=== PATIENT | female | born 1960 | race Caucasian/White ===

== ENCOUNTER 2016-08-25 09:31 | Emergency (ER) | payer MEDICAID ==
[~2016-08-25] VITALS: Ht 175.3 cm; Wt 80.0 kg
[~2016-08-25 09:31] MED LIST: PREG200C PO; PREG300C PO
[2016-08-25 10:23] LABS: HEMOGLOBIN 13.6 g/dL (11.7-16.4)
[2016-08-25] MEDS ORDERED: IBUPROFEN 200 MG TABLET ONE (10:25)
[2016-08-25] MEDS ORDERED: IBUPROFEN 800 MG TABLET PO ONE (10:30)
[2016-08-25] MEDS ORDERED: ACETAMINOPHEN 500 MG TABLET PO ONE (10:30)
[2016-08-25] MEDS ORDERED: ACETAMINOPHEN 500 MG TABLET ONE (10:32)
[2016-08-25 10:33] LABS: BLOOD UREA NITROGEN 12 mg/dL (7-18)
[2016-08-25 10:35] VITALS: BP 118/80
[2016-08-25 10:42] LABS: IS PT STATUS REG ER OR PRE ER? YES
== END 2016-08-25 11:07 | disposition home or self-care (01) ==
LOC: ED 11:00
DX: R07.89 Other chest pain (principal); M54.9 Dorsalgia, unspecified; G89.29 Other chronic pain; M54.30 Sciatica, unspecified side; Z88.1 Allergy status to other antibiotic agents; Z88.6 Allergy status to analgesic agent; F17.200 Nicotine dependence, unspecified, uncomplicated
CPT/HCPCS: 36415; 71010; 80048; 82040; 83880; 84484; 85025; 85379; 93005

== ENCOUNTER 2016-12-15 09:35 | Emergency (ER) | payer MEDICAID ==
[~2016-12-15] VITALS: Ht 175.3 cm; Wt 81.9 kg
[2016-12-15 09:36] VITALS: BP 132/88
[2016-12-15] MEDS ORDERED: PREGABALIN 150 MG CAPSULE PO ONE (10:07)
== END 2016-12-15 10:52 | disposition home or self-care (01) ==
LOC: ED 10:26
DX: Z76.0 Encounter for issue of repeat prescription (principal); Z88.1 Allergy status to other antibiotic agents; Z88.8 Allergy status to other drugs, medicaments and biological substances
CPT/HCPCS: 99283

== ENCOUNTER 2017-02-04 14:33 | Emergency (ER) | payer MEDICAID ==
[~2017-02-04] VITALS: Ht 175.3 cm; Wt 82.3 kg
[2017-02-04 14:37] VITALS: BP 98/67
[2017-02-04] MEDS ORDERED: ACETAMINOPHEN 325 MG TABLET ONE (15:32)
[2017-02-04] MEDS ORDERED: ACETAMINOPHEN 325 MG TABLET PO ONE (16:00)
== END 2017-02-04 15:48 | disposition home or self-care (01) ==
LOC: ED 15:26
DX: S00.411A Abrasion of right ear, initial encounter (principal); S09.90XA Unspecified injury of head, initial encounter; J01.00 Acute maxillary sinusitis, unspecified; G89.29 Other chronic pain; M54.5 Low back pain; Z88.1 Allergy status to other antibiotic agents; Z88.6 Allergy status to analgesic agent; Z88.8 Allergy status to other drugs, medicaments and biological substances; Y04.8XXA Assault by other bodily force, initial encounter; Y93.89 Activity, other specified; Y92.89 Other specified places as the place of occurrence of the external cause; Y99.2 Volunteer activity
CPT/HCPCS: 70450; 99284

== ENCOUNTER 2017-02-15 09:54 | Emergency (ER) | payer MEDICAID ==
[~2017-02-15] VITALS: Ht 176.5 cm; Wt 84.1 kg
[2017-02-15 10:02] VITALS: BP 131/84
[2017-02-15] MEDS ORDERED: HYDROcodone/APAP 5/325 TABLET ONE (10:35)
[2017-02-15] MEDS ORDERED: HYDROcodone/APAP 5/325 TABLET PO ONE (11:00)
== END 2017-02-15 10:49 | disposition home or self-care (01) ==
LOC: ED 10:28
DX: K08.89 Other specified disorders of teeth and supporting structures (principal); F17.200 Nicotine dependence, unspecified, uncomplicated; Z88.1 Allergy status to other antibiotic agents; Z88.5 Allergy status to narcotic agent; Z88.8 Allergy status to other drugs, medicaments and biological substances; Z88.6 Allergy status to analgesic agent
CPT/HCPCS: 99283

== ENCOUNTER 2017-06-10 17:44 | Emergency (ER) | payer MEDICAID ==
[~2017-06-10] VITALS: Ht 172.7 cm; Wt 78.6 kg
[2017-06-10 17:54] VITALS: BP 117/80
[2017-06-10 18:59] LABS: BASOPHILS # (AUTO) 0.03 x10^3/uL (0-0.1); BASOPHILS % (AUTO) 0 % (0-1); EOSINOPHILS # (AUTO) 0.11 x10^3/uL (0-0.4); EOSINOPHILS % (AUTO) 1 % (1-7); LYMPHOCYTES # (AUTO) 1.99 x10^3/uL (1-3.4); LYMPHOCYTES % (AUTO) 23 % (22-44); MD NO; MEAN CORPUSCULAR HEMOGLOBIN 28.3 pg (27.0-34.8); MEAN CORPUSCULAR HGB CONC 32.7 g/dL (32.4-35.8); MEAN CORPUSCULAR VOLUME 86.4 fL (80-100); MEAN PLATELET VOLUME 7.9 fL (7.4-10.4); MONOCYTES # (AUTO) 0.78 x10^3/uL (0.2-0.8); MONOCYTES % (AUTO) 9 % (2-9); NEUTROPHILS # (AUTO) 5.73 x10^3/uL (1.8-6.8); NEUTROPHILS % (AUTO) 66 % (42-75); PLATELET COUNT 367 x10^3/uL (130-400); RED BLOOD COUNT 4.73 x10^6/uL (3.82-5.3); RED CELL DISTRIBUTION WIDTH 15.4 % (9.6-15.2)
[2017-06-10 18:59] LABS: CULTURE INDICATED? YES; MICROSCOPIC INDICATED
[2017-06-10 19:01] LABS: AMPHETAMINE SCREEN, URINE Positive (Negative); BARBITURATE SCREEN, URINE Negative (Negative); BENZODIAZEPINE SCREEN, URINE Positive (Negative); CANNABINOID SCREEN, URINE Negative (Negative); COCAINE SCREEN, URINE Negative (Negative); METHADONE SCREEN, URINE Positive (Negative); OPIATE SCREEN, URINE Negative (Negative)
[2017-06-10 19:06] LABS: ALANINE AMINOTRANSFERASE 16 U/L (12-78); ALBUMIN 2.4 g/dL (3.4-5.0); ANION GAP 6 mmol/L (5-15); CALCIUM 8.8 mg/dL (8.5-10.1); CHLORIDE 107 mmol/L (98-107); CREATININE 0.85 mg/dL (0.55-1.02)
[2017-06-10 19:08] LABS: ALKALINE PHOSPHATASE 100 U/L (45-117); BILIRUBIN,TOTAL 0.3 mg/dL (0.2-1.0); TOTAL PROTEIN 6.4 g/dL (6.4-8.2)
[2017-06-10 19:10] LABS: TROPONIN I < 0.015 ng/mL (0.000-0.045)
== END 2017-06-10 19:39 | disposition home or self-care (01) ==
LOC: ED 19:20
DX: R10.12 Left upper quadrant pain (principal); K44.9 Diaphragmatic hernia without obstruction or gangrene; N30.00 Acute cystitis without hematuria; F15.10 Other stimulant abuse, uncomplicated; F13.10 Sedative, hypnotic or anxiolytic abuse, uncomplicated; F19.10 Other psychoactive substance abuse, uncomplicated
CPT/HCPCS: 36415; 71010; 80053; 80307; 81001; 83690; 84484; 85025; 87077; 87086; 87186; 93005; 99285; G0479

== ENCOUNTER 2017-10-13 12:15 | Emergency (ER) | payer MEDICAID ==
[~2017-10-13] VITALS: Ht 175.3 cm; Wt 76.3 kg
[2017-10-13 12:55] VITALS: BP 145/88
== END 2017-10-13 13:02 | disposition home or self-care (01) ==
LOC: ED 12:53
DX: R56.9 Unspecified convulsions (principal); G89.29 Other chronic pain; Z76.0 Encounter for issue of repeat prescription
CPT/HCPCS: 82962; 99283

== ENCOUNTER 2017-12-27 15:30 | Emergency (ER) | payer MEDICAID ==
[~2017-12-27] VITALS: Ht 175.3 cm; Wt 83.3 kg
[2017-12-27 15:35] VITALS: BP 124/83
[2017-12-27] MEDS ORDERED: OXYcodone/APAP 5/325MG TABLET ONE (16:18)
[2017-12-27] MEDS ORDERED: OXYcodone/APAP 5/325MG TABLET PO ONE (16:30)
== END 2017-12-27 16:59 | disposition home or self-care (01) ==
LOC: ED 16:45
DX: G89.29 Other chronic pain (principal); M54.17 Radiculopathy, lumbosacral region; M54.41 Lumbago with sciatica, right side
CPT/HCPCS: 99283

== ENCOUNTER 2018-10-20 12:26 | Emergency (ER) | payer MEDICAID ==
[~2018-10-20] VITALS: Ht 177.8 cm; Wt 87.6 kg
[2018-10-20 12:43] VITALS: BP 127/87
--- NOTE | 2018-10-20 13:12 | NUR ---
Discharge instructions discussed with patient including when to return to emergency department, patient verbalizes understanding. Prescription provided with instruction for use.
== END 2018-10-20 13:14 | disposition home or self-care (01) ==
LOC: ED 13:05
DX: T78.40XA Allergy, unspecified, initial encounter (principal); F17.200 Nicotine dependence, unspecified, uncomplicated; G62.9 Polyneuropathy, unspecified; X58.XXXA Exposure to other specified factors, initial encounter
CPT/HCPCS: 99283

== ENCOUNTER 2019-12-26 09:36 | Emergency (ER) | payer MEDICAID ==
[~2019-12-26] VITALS: Ht 175.3 cm; Wt 90.8 kg
--- NOTE | 2019-12-26 10:09 | NUR ---
CC UA COLLECTED AND SENT TO LAB
[2019-12-26 10:37] LABS: MICROSCOPIC INDICATED
--- NOTE | 2019-12-26 10:37 | NUR ---
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 STEADY UPON AMBULATION.
[2019-12-26] MEDS ORDERED: CEFTRIAXONE PMX 1GM/50ML 50 ML IVPB ONE (11:00)
[2019-12-26] MEDS ORDERED: SODIUM CHLORIDE FLUSH 10ML SYR IVF ONE (11:00)
[2019-12-26 11:14] LABS: BASOPHILS # (AUTO) 0.03 x10^3/uL (0-0.1); BASOPHILS % (AUTO) 0 % (0-1); EOSINOPHILS # (AUTO) 0.09 x10^3/uL (0-0.4); EOSINOPHILS % (AUTO) 1 % (1-7); LYMPHOCYTES # (AUTO) 1.03 x10^3/uL (1-3.4); LYMPHOCYTES % (AUTO) 11 % (22-44); MD NO; MEAN CORPUSCULAR HEMOGLOBIN 28.9 pg (27.0-34.8); MEAN CORPUSCULAR HGB CONC 33.3 g/dL (32.4-35.8); MEAN CORPUSCULAR VOLUME 86.8 fL (80-100); MEAN PLATELET VOLUME 8.9 fL (7.4-10.4); MONOCYTES # (AUTO) 0.64 x10^3/uL (0.2-0.8); MONOCYTES % (AUTO) 7 % (2-9); NEUTROPHILS # (AUTO) 7.43 x10^3/uL (1.8-6.8); NEUTROPHILS % (AUTO) 81 % (42-75); PLATELET COUNT 192 x10^3/uL (130-400); RED BLOOD COUNT 4.87 x10^6/uL (3.82-5.3)
--- NOTE | 2019-12-26 11:22 | NUR ---
piv placed from which second set of blood cultures drawn
[2019-12-26 11:26] LABS: ALBUMIN 3.9 g/dL (3.4-5.0); ANION GAP 6 mmol/L (5-15); CALCIUM 9.8 mg/dL (8.5-10.1); CHLORIDE 108 mmol/L (98-107)
[2019-12-26] MEDS ORDERED: HYDROmorphone 1 MG/ML, 1ML INJ ONE (11:26)
[2019-12-26] MEDS ORDERED: ONDANSETRON 2MG/ML, 2ML ONE (11:26)
[2019-12-26] MEDS ORDERED: CEFTRIAXONE PMX 1GM/50ML 50 ML ONE (11:30)
[2019-12-26] MEDS ORDERED: SODIUM CHLORIDE 0.9% 1,000 ML IV SCH ×2 (11:30→11:34)
[2019-12-26] MEDS ORDERED: HYDROmorphone 1 MG/ML, 1ML INJ IV ONE (11:30)
--- NOTE | 2019-12-26 11:36 | NUR ---
medicated per for pain/nausea and ivf and abx vss on night monitor
[2019-12-26] MEDS ORDERED: ONDANSETRON 2MG/ML, 2ML IVPush ONE (12:00)
[2019-12-26 12:13] VITALS: BP 121/47
--- NOTE | 2019-12-26 12:18 | NUR ---
Ivf/abx complete provider to bedside- to discharge with po abx
== END 2019-12-26 13:14 | disposition home or self-care (01) ==
LOC: ED 10:09
DX: N10 Acute pyelonephritis (principal); R30.0 Dysuria; R11.2 Nausea with vomiting, unspecified; M54.5 Low back pain; Z88.9 Allergy status to unspecified drugs, medicaments and biological substances; Z88.1 Allergy status to other antibiotic agents; Z79.899 Other long term (current) drug therapy
CPT/HCPCS: 36415; 80048; 81001; 82040; 83605; 85025; 87040; 87077; 87086; 96365; 96375; 99284; J0696; J1170; J2405; J7030; 87186